=== PATIENT | female | born 1995 | race Caucasian/White ===

== ENCOUNTER 2018-06-11 11:41 | Emergency (ER) | payer OTHER ==
--- NOTE | 2018-06-11 13:38 | ED Physician Documentation ---
History of Present Illness - Stated complaint Stated Complaint: FEMALE - Chief complaint Chief Complaint: Laceration - History obtained from History obtained from: Patient - History of Present Illness Timing: Other (Sexual intercourse with a stable monogamous partner 3 nights ago and feels like she might have a posterior vaginal tear and has some bumps in the area and she has specific concerns about STDs. She is on her menses currently.) Review of Systems Constitutional: denies: Fever, Chills Nose: denies: Rhinorrhea / runny nose, Congestion GI: denies: Abdominal Pain PD PAST MEDICAL HISTORY - Past Medical History Past Medical History: No - Past Surgical History Past Surgical History: No - Present Medications Home Medications: Ambulatory Orders Medication Instructions Recorded Confirmed Amox/Clav 875/125 [Augmentin 1 tab PO BID 7 Days #14 tablet 06/11/18 875/125] Ethinyl Estradiol/Drospirenone 1 tab PO DAILY 06/11/18 06/11/18 [Shanna 28 Tablet] - Allergies Allergies/Adverse Reactions: Allergies Allergy/AdvReac Type Severity Reaction Status Date / Time No Known Drug Allergies Allergy Verified 06/11/18 11:56 - Social History Does the pt smoke?: No Smoking Status: Never smoker Does the pt drink ETOH?: No Does the pt have substance abuse?: No - Immunizations Immunizations are current?: Yes - POLST Patient has POLST: No PD ED PE NORMAL - Vitals Vital signs reviewed: Yes - General General: Alert and oriented X 3, No acute distress - Abdomen Abdomen: Soft, Non tender - Female Female : 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 Nothing consistent with a herpetic infection or STD. On speculum examination she is on her menses and has a very small posterior laceration barely through the mucosa.) - Neuro Neuro: Alert and oriented X 3, Normal speech - Psych Psych: Normal mood, Normal affect Results - Vitals Vitals: Vital Signs - 24 hr 06/11/18 11:53 Temperature 36.2 C L Heart Rate 99 Respiratory 16 Rate Blood Pressure 139/82 H O2 Saturation 100 Oxygen O2 Source Room air PD MEDICAL DECISION MAKING - Sepsis Event Vital Signs: Vital Signs - 24 hr 06/11/18 11:53 Temperature 36.2 C L Heart Rate 99 Respiratory 16 Rate Blood Pressure 139/82 H O2 Saturation 100 Oxygen O2 Source Room air Departure - Departure Disposition: 01 Home, Self Care Clinical Impression: Folliculitis, Vaginal laceration, old Condition: Good Record reviewed to determine appropriate education?: Yes Instructions: ED Laceration Vaginal Non Obstetric Prescriptions: Amox/Clav 875/125 [Augmentin 875/125] 1 tab PO BID 7 Days #14 tablet Comments: Call your doctor to arrange a follow-up appointment, make the next available appointment. In the interim, return anytime if worse or if new symptoms develop. Your blood pressure was elevated today on check into the emergency department. This does not mean that you have hypertension, it is a common phenomenon to come to the emergency department and have elevated blood pressure. I recommend that you see your primary care physician within the week to have it rechecked when you are feeling better.
[2018-06-11 14:08] LABS: HCG UR QUAL NEGATIVE
[2018-06-11 14:31] VITALS: BP 125/90
== END 2018-06-11 14:31 | disposition home or self-care (01) ==
LOC: ED 11:41
DX: L73.8 Other specified follicular disorders (principal); S31.41XA Laceration without foreign body of vagina and vulva, initial encounter; X58.XXXA Exposure to other specified factors, initial encounter; R03.0 Elevated blood-pressure reading, without diagnosis of hypertension
CPT/HCPCS: 81025; 99283